=== PATIENT | male | born 1955 | race Hispanic/Latino ===

== ENCOUNTER 2016-11-23 21:19 | Inpatient (IN) | payer MEDICAID ==
--- NOTE | 2016-11-23 21:21 | ED PDOC ---
Psych Transfer Clearance - Clearance Statement Clearance Statement: Reviewed vital signs, lab results and transfer papers. Patient clinically stable for psychiatric admission.
[2016-11-23] MEDS ORDERED: Alum-Mag Hydrox-Simethicone Susp (30 mL) PO PRN (21:59)
[2016-11-23] MEDS ORDERED: DiphenhydrAMINE 50 mg/ml Inj IM PRN (21:59)
[2016-11-23] MEDS ORDERED: Bismuth Subsalicylate 262 mg/15 ml Sus (240 ml) PO PRN (22:04)
[2016-11-24 06:18] LABS: HEMOGLOBIN 15.2 g/dL (12.0-18.0); MEAN CELL VOLUME 91.4 fl (80.0-94.0); MEAN CORPUSCULAR HEMOGLOBIN 30.4 pg (27.0-31.0); MEAN CORPUSCULAR HGB CONC 33.3 g/dL (33.0-37.0); RBC 4.99 Mil/uL (4.40-5.90); WHITE BLOOD COUNT 8.8 K/uL (4.8-10.8)
[2016-11-24 06:34] LABS: IRON 90 ug/dL (49-181)
[2016-11-24 06:48] LABS: T4 7.45 ug/dl (5.5-11.0)
[2016-11-24 07:43] LABS: BLOOD UREA NITROGEN 21 mg/dl (9-20); CALCIUM 8.8 mg/dL (8.4-10.2); GFR AFRICAN-AMERICAN > 60; GFR NON-AFRICAN AMERICAN > 60; HDL CHOLESTEROL 27 MG/DL (30-70)
[2016-11-24 07:54] LABS: LDL CHOLESTEROL 114 mg/dL (0-129)
[2016-11-24 07:57] LABS: % IRON SATURATION 32 % (20-55); TOTAL IRON BINDING CAPACITY 272 ug/dL (250-450)
[2016-11-24] MEDS: Insulin Lispro (humaLOG) 100 Units/ml Inj SC SCH ×4 (08:27→21:24)
--- NOTE | 2016-11-24 10:02 | PCM.PSYCH ---
Initial Psychiatric Evaluation - Initial Psychiatric Evaluation Type of Admission: Voluntary Legal Status: Capacity Chief Complaint (in patient's own words): "I'm worried about the welfare of my family." Patient's Reaction to Hospitalization: 61 yo male w/ h/o Schizoaffective Disorder, was referred to [facility] by his family for worsening paranoia, panic attacks and anxiety. Patient reports that he is preoccupied with the wellbeing of his family. He denies concerns that people want to harm him or his family but does acknowledge that he can understand that his family thinks he is paranoid. NO AH/VH. He denies currently feeling depressed. He is worried about going back to compulsive spending. NO SI/HI, but on initial evaluation the patient reported having "black thoughts" of suicide. PPHX: Current outpatient tx w/ Dr. Ronny Nguyen. One prior psychiatric admission as per records. PMHx: HTN, DMII ALL: NKDA SHx: Completed 12th grade. Unemployed. Was in the [employer]. Denies drugs/ etoh/cig Current Medications: Active Medications Generic Name Dose Route Start Last Admin Trade Name Freq PRN Reason Stop Dose Admin Acetaminophen 650 mg 11/23/16 21:59 Tylenol 325mg Tab PO Q4 PRN Pain, moderate (4-7) Al Hydrox/Mg Hydrox/Simethicone 30 ml 11/23/16 21:59 Maalox Plus 30 Ml PO Q4 PRN Dyspepsia Bismuth Subsalicylate 524 mg 11/23/16 22:04 Pepto-Bismol PO Q4 PRN Diarrhea Diphenhydramine HCl 50 mg 11/23/16 21:59 Benadryl IM Q6 PRN Extrapyramidal S/S Unable PO Diphenhydramine HCl 50 mg 11/23/16 21:59 Benadryl PO Q6 PRN Extrapyramidal Symptoms Diphenhydramine HCl 50 mg 11/23/16 22:04 11/23/16 22:37 Benadryl PO 50 mg HS PRN Administration Sleep Haloperidol 5 mg 11/23/16 21:59 Haldol PO Q4 PRN Agitation Haloperidol Lactate 5 mg 11/23/16 21:59 Haldol IM Q4 PRN Agitation, Unable to Take PO Insulin Human Lispro 0 units 11/24/16 07:30 11/24/16 08:27 Humalog SC Not Given ACHS LAY Protocol Lorazepam 2 mg 11/23/16 21:59 Ativan IM Q4 PRN Anxiety/Agitation,Unable PO Lorazepam 2 mg 11/23/16 21:59 Ativan PO Q4 PRN Anxiety/Agitation Magnesium Hydroxide 30 ml 11/23/16 21:59 Milk Of Magnesia PO HS PRN Constipation Past Psychiatric History - Past Psychiatric History Previous Treatment History: Inpatient Pertinent Medical Hx (Current Medical&Sleep Prob, Allergies): Allergies Allergy/AdvReac Type Severity Reaction Status Date / Time No Known Allergies Allergy Verified 11/23/16 21:20 ARIPiprazole [Abilify] 5 mg PO BID 11/24/16 Lisinopril/Hydrochlorothiazide [Lisinopril-Hctz 20-12.5 mg Tab] 1 each PO BID Paroxetine HCl [Paxil] 40 mg PO DAILY 11/24/16 Verapamil HCl [Verapamil HCl] 360 mg PO DAILY 11/24/16 glyBURIDE [Glyburide] 5 mg PO BID 11/24/16 metFORMIN [glucOPHAGE] 500 mg PO BRKDIN 11/24/16 traZODone [trazODONE HYDROCHLORIDE] 50 mg PO HS 11/24/16 Review of Systems - Psychiatric Psychiatric: Anxiety, Behavioral Changes, Panic Attacks, Paranoia, Suicidal Ideation Mental Status Examination - Personal Presentation Personal Presentation: Looks stated age - Affect Affect: Broad - Motor Activity Motor Activity: Calm - Reliability in Providing Information Reliability in Providing Information: Fair - Speech Speech: Coherent - Mood Mood: Anxious - Formal Thought Process Formal Thought Process: Paranoia, Loosening of associations - Obsessions/Compulsions Obsessions: No Compulsions: No - Cognitive Functions Orientation: Person, Place, Situation, Time Sensorium: Alert Attention/Concentration: Attentive Estimate of Intelligence: Average Judgement: Intact, as evidence by: Insight regarding need for hospitalization Memory: Recent intact, as evidence by: Ability to recall events of the day, Remote intact, as evidenced by: Abilit to recall sig. life events, Remote intact , as evidenced by: Ability to recall historical events - Risk Risk: Diminished functioning - Strength & Assets Inventory Strength & Assets Inventory: Family support, Cooperative DSM 5 DX - DSM 5 DSM 5 Diagnosis: Schizoaffective Disorder - Recommended/Plan of Treatment Treatment Recommendations and Plan of Treatment: -Admit to geropsychiatry -Increase Abilify to 15 mg PO Daily -Continue Paxil 40 mg PO Daily -Continue Trazodone 50 mg PO HS -Obtain collateral history from primary psychiatris and family -Disposition planning -Routine hospitalist consult Projected ELOS: 5 days Discharge Plan and Discharge Criteria: Discharge when psychiatrically stable - Smoking Cessation Smoking Cessation Initiated: No Reason for not providing: Not indicated
[2016-11-24 15:41] LABS: FOLATE > 20.0 ng/mL
--- NOTE | 2016-11-24 17:23 | CP.PCM.HP ---
History of Present Illness - History of Present Illness History of Present Illness: 61 YO M w/ Schizoaffective disorder was transferred from [facility]. Pt states that he has had increased anxiety since his mother had a heart attack, he feels like he has a lot of responsibilities. He denies any suicidal or homicidal ideation currently. Denies any visual or auditory hallucination. Denies any chest pain, SOB, N/V/D/C PMH: HTN, DM 2 PSH: none F/H: Father: CHF, Stroke S/H: Denies alcohol, smoking , illicit drug use Allergy: NKDA Present on Admission - Present on Admission Any Indicators Present on Admission: No Review of Systems - Review of Systems All systems: reviewed and no additional remarkable complaints except Past Patient History - CARDIAC Hx Hypertension: Yes - HEENT Hx HEENT Problems: No - RENAL Hx Chronic Kidney Disease: No - ENDOCRINE/METABOLIC Hx Diabetes Mellitus Type 2: Yes - HEMATOLOGICAL/ONCOLOGICAL Hx Blood Disorders: No - INTEGUMENTARY Hx Dermatological Problems: No - MUSCULOSKELETAL/RHEUMATOLOGICAL Hx Musculoskeletal Disorders: No Hx Falls: No - GASTROINTESTINAL Hx Gastrointestinal Disorders: No - GENITOURINARY/GYNECOLOGICAL Hx Genitourinary Disorders: No - PSYCHIATRIC Hx Depression: Yes Hx Schizophrenia: Yes Hx Substance Use: No - SURGICAL HISTORY Hx Surgeries: No - ANESTHESIA Hx Anesthesia: No Hx Anesthesia Reactions: No Hx Malignant Hyperthermia: No Has any member of the family had a problem w/ anesthesia?: No Meds Allergies/Adverse Reactions: Allergies Allergy/AdvReac Type Severity Reaction Status Date / Time No Known Allergies Allergy Verified 11/23/16 21:20 Physical Exam - Constitutional Appears: No Acute Distress - Head Exam Head Exam: NORMAL INSPECTION, NORMOCEPHALIC - Eye Exam Eye Exam: Normal appearance - Respiratory Exam Respiratory Exam: Clear to Auscultation Bilateral, NORMAL BREATHING PATTERN. absent: Rhonchi, Wheezes - Cardiovascular Exam Cardiovascular Exam: REGULAR RHYTHM, +S1, +S2 - GI/Abdominal Exam GI & Abdominal Exam: Normal Bowel Sounds, Soft. absent: Tenderness - Neurological Exam Neurological exam: Alert, CN II-XII Intact, Oriented x3 - Psychiatric Exam Psychiatric exam: Normal Affect, Normal Mood - Skin Skin Exam: Normal Color, Warm Results - Vital Signs Recent Vital Signs: Last Vital Signs Temp 97.3 F L 11/24/16 15:58 Pulse 78 11/24/16 17:08 Resp 18 11/24/16 15:58 BP 138/76 11/24/16 17:08 Pulse Ox 100 11/23/16 21:20 - Labs Result Diagrams: 11/24/16 06:10 11/24/16 06:10 Labs: Laboratory Results - last 24 hr 11/24/16 11/24/16 11/24/16 05:53 06:10 06:10 WBC RBC Hgb Hct MCV MCH MCHC RDW Plt Count Sodium 136 Potassium 5.1 H Chloride 99 Carbon Dioxide 29 Anion Gap 13 BUN 21 H Creatinine 1.1 Est GFR ( Amer) > 60 Est GFR (Non-Af Amer) > 60 POC Glucose (mg/dL) 113 H Random Glucose 137 H Hemoglobin A1c 10.6 H Calcium 8.8 Iron TIBC % Saturation Ferritin 119.0 Triglycerides 186 H Cholesterol 163 LDL Cholesterol Direct 114 HDL Cholesterol 27 L Vitamin B12 371 Folate > 20.0 Thyroxine (T4) 7.45 TSH 3rd Generation 0.48 11/24/16 11/24/16 11/24/16 06:10 06:10 11:20 WBC 8.8 RBC 4.99 Hgb 15.2 Hct 45.7 MCV 91.4 MCH 30.4 MCHC 33.3 RDW 13.0 Plt Count 257 Sodium Potassium Chloride Carbon Dioxide Anion Gap BUN Creatinine Est GFR ( Amer) Est GFR (Non-Af Amer) POC Glucose (mg/dL) 310 H Random Glucose Hemoglobin A1c Calcium Iron 90 TIBC 272 % Saturation 32 Ferritin Triglycerides Cholesterol LDL Cholesterol Direct HDL Cholesterol Vitamin B12 Folate Thyroxine (T4) TSH 3rd Generation 11/24/16 11/24/16 11/24/16 12:26 15:47 16:56 WBC RBC Hgb Hct MCV MCH MCHC RDW Plt Count Sodium Potassium Chloride Carbon Dioxide Anion Gap BUN Creatinine Est GFR ( Amer) Est GFR (Non-Af Amer) POC Glucose (mg/dL) 277 H 259 H 207 H Random Glucose Hemoglobin A1c Calcium Iron TIBC % Saturation Ferritin Triglycerides Cholesterol LDL Cholesterol Direct HDL Cholesterol Vitamin B12 Folate Thyroxine (T4) TSH 3rd Generation Assessment & Plan - Assessment and Plan (Free Text) Assessment: 1) Schizoaffective disorder - Rx as per psych 2) HTN - Lisinopril 20 mg BId - HTZ 12.5mg - Verapamil 360mg 3) DM 2 - HBA1C: 10.6 - Glyburide - Insulin Lispro - Metformin 500 mg BID - Accucheck - heart healthy diet 4) Prophylaxis - Encourage ambulation 10 mg every hour daily during daytime
[2016-11-25] MEDS: Verapamil 180 mg ER Tab PO SCH (08:54)
[2016-11-25] MEDS: Insulin Lispro (humaLOG) 100 Units/ml Inj SC SCH ×4 (08:57→21:13)
--- NOTE | 2016-11-25 13:18 | PCM.PYCHPN ---
Psychiatric Progress Note - Psychiatric Progress Note Patient seen today, length of contact: Patient evaluated, case discussed with team, chart reviewed Patient Chief Complaint: "I'm worried about the welfare of my family." Problems Identified/Issues Discussed: Patient continues to be preoccupied with the wellbeing of his family. He is worried that his mother is dying (mother denies) and that he will never see her again. He is preoccupied that she doesn't have food or medications at home ( not true) and that he is needed to take care of his disabled brother. He reports feeling depressed in the context of these preoccupations. We discussed continued titration of Abilify. No current adverse effects noted. Medication Change: Yes (Increase Abilify to 20 mg PO Daily, starting tomorrow) Medical Record Reviewed: Yes Consults ordered or reviewed: Medicine consult re: management of DM and HTN Mental Status Examination - Cognitive Function Orientation: Person, Place, Situation, Time Memory: Intact Attention: WNL Concentration: WNL Association: WNL Fund of Knowledge: WN Decription of patient's judgement and insights: Poor insight/ fair judgment - Mood Mood: Depressed, Anxious - Affect Affect: Constricted, Depressed - Speech Speech: Appropriate - Formal Thought Process Formal Thought Process: Paranoia, Loosening of associations, Other (Preoccupied with his family's wellbeing and health) Psychotic Thoughts and Behaviors: Denies AH/VH - Suicidal Ideation Suicidal Ideation: No - Homicidal Ideation Homicidal Ideation: No Goal/Treatment Plan - Goal/Treatment Plan Need for Continued Stay: Remain at risks for inpatient hospitalization, Discharge may exacerbated symptoms, Severe functional impairment Progress Toward Problem(s) and Goals/Treatment Plan: Schizoaffective Disorder, acutely decompensated, paranoid and anxious. -Increase Abilify to 20 mg PO Daily starting tomorrow -Continue Paxil 40 mg PO Daily -Continue Trazodone 50 mg PO HS -Obtain collateral history from primary psychiatrist (pending return call) and family -Disposition planning -Medicine consult appreciated
[2016-11-26] MEDS: Insulin Lispro (humaLOG) 100 Units/ml Inj SC SCH ×4 (08:40→21:07)
[2016-11-26] MEDS: Verapamil 180 mg ER Tab PO SCH (08:41)
--- NOTE | 2016-11-26 11:14 | PCM.PYCHPN ---
Psychiatric Progress Note - Psychiatric Progress Note Patient seen today, length of contact: Patient evaluated, case discussed with team, chart reviewed Patient Chief Complaint: "I'm worried about the welfare of my family." Problems Identified/Issues Discussed: Patient continues to be preoccupied with the wellbeing of his family. He is worried that something bad will happen to his mother and his special needs brother, despite no evidence to indicate that they are in immediate danger. He reports feeling anxious and depressed due to these preoccupations. No current adverse effects noted. Medication Change: Yes (Increase Abilify to 20 mg PO Daily) Medical Record Reviewed: Yes Mental Status Examination - Cognitive Function Orientation: Person, Place, Situation, Time Memory: Intact Attention: WNL Concentration: WNL Association: WNL Fund of Knowledge: WN Decription of patient's judgement and insights: Poor insight/ fair judgment - Mood Mood: Depressed, Anxious - Affect Affect: Constricted, Depressed - Speech Speech: Appropriate - Formal Thought Process Formal Thought Process: Loosening of associations, Other (Preoccupied with his family's wellbeing and health) Psychotic Thoughts and Behaviors: Denies AH/VH - Suicidal Ideation Suicidal Ideation: No - Homicidal Ideation Homicidal Ideation: No Goal/Treatment Plan - Goal/Treatment Plan Need for Continued Stay: Remain at risks for inpatient hospitalization, Discharge may exacerbated symptoms, Severe functional impairment Progress Toward Problem(s) and Goals/Treatment Plan: Schizoaffective Disorder, acutely decompensated, paranoid and anxious. -Increase Abilify to 20 mg PO Daily -Continue Paxil 40 mg PO Daily -Continue Trazodone 50 mg PO HS -Obtain collateral history from primary psychiatrist (pending return call) and family -Disposition planning -Medicine consult appreciated Estimated Date of D/C: 12/01/16
[2016-11-27] MEDS: Insulin Lispro (humaLOG) 100 Units/ml Inj SC SCH ×4 (08:10→21:04)
[2016-11-27] MEDS: Verapamil 180 mg ER Tab PO SCH (08:16)
--- NOTE | 2016-11-27 09:39 | PCM.PYCHPN ---
Psychiatric Progress Note - Psychiatric Progress Note Patient seen today, length of contact: Patient evaluated, case discussed with team, chart reviewed Patient Chief Complaint: "I'm worried about the welfare of my family." Problems Identified/Issues Discussed: Patient continues to be preoccupied with the wellbeing of his family. He is worried that something bad will happen to his mother and his special needs brother, despite no evidence to indicate that they are in immediate danger. He is requesting to call his denominational to ask someone to check on his family. He seeks reassurance from various staff members. He reports feeling anxious and depressed due to these preoccupations. No current adverse effects noted. Medication Change: Yes (Start Klonopin 0.5 mg Q12 hr) Medical Record Reviewed: Yes Mental Status Examination - Cognitive Function Orientation: Person, Place, Situation, Time Memory: Intact Attention: WNL Concentration: WNL Association: WNL Fund of Knowledge: [facility] Decription of patient's judgement and insights: Poor insight/ fair judgment - Mood Mood: Depressed, Anxious - Affect Affect: Constricted, Depressed - Speech Speech: Appropriate - Formal Thought Process Formal Thought Process: Loosening of associations, Other (Preoccupied with his family's wellbeing and health) Psychotic Thoughts and Behaviors: Denies AH/VH - Suicidal Ideation Suicidal Ideation: No - Homicidal Ideation Homicidal Ideation: No Goal/Treatment Plan - Goal/Treatment Plan Need for Continued Stay: Remain at risks for inpatient hospitalization, Discharge may exacerbated symptoms, Severe functional impairment Progress Toward Problem(s) and Goals/Treatment Plan: Schizoaffective Disorder, acutely decompensated, paranoid and anxious. -Continue Abilify 20 mg PO Daily -Start Klonopin 0.5 mg PO Q12 hr -Continue Paxil 40 mg PO Daily -Continue Trazodone 50 mg PO HS -Obtain collateral history from primary psychiatrist (pending return call) and family -Disposition planning -Medicine consult appreciated Estimated Date of D/C: 12/02/16
[2016-11-28] MEDS: Verapamil 180 mg ER Tab PO SCH (08:33)
[2016-11-28] MEDS: Insulin Lispro (humaLOG) 100 Units/ml Inj SC SCH ×4 (08:35→21:11)
[2016-11-28 16:25] VITALS: BMI 27.7
[2016-11-29] MEDS: Verapamil 180 mg ER Tab PO SCH (09:08)
[2016-11-29] MEDS: Insulin Lispro (humaLOG) 100 Units/ml Inj SC SCH ×2 (09:09→11:38)
[2016-11-29] MEDS: Magnesium Hydroxide Susp 30 ml UD PO PRN (09:22)
--- NOTE | 2016-11-29 11:25 | PCM.PYCHPN ---
Psychiatric Progress Note - Psychiatric Progress Note Patient seen today, length of contact: Patient evaluated, case discussed with team, chart reviewed Patient Chief Complaint: changes in mood, hyper, spending too much money, family brought him to [facility]- [facility] [address] [facility] Problems Identified/Issues Discussed: alteration in mood impulsive spending impulsive activity paranoia Medical Problems: per chart Diagnostic Results: per psychiatry per medicine per nursing per director of social services per recreational therapy Medication Change: Yes (increase abilify to 30mg po day 2nd paranoia/ impulsivity ) Medical Record Reviewed: Yes Mental Status Examination - Cognitive Function Orientation: Person, Place, Situation, Time Memory: Intact Attention: WNL Concentration: WNL Association: WN Fund of Knowledge: [facility] Decription of patient's judgement and insights: impaired - Mood Mood: Depressed, Anxious - Affect Affect: Constricted, Depressed - Speech Speech: Appropriate - Formal Thought Process Formal Thought Process: Loosening of associations, Other (Preoccupied with his family's wellbeing and health) - Suicidal Ideation Suicidal Ideation: No - Homicidal Ideation Homicidal Ideation: No Goal/Treatment Plan - Goal/Treatment Plan Need for Continued Stay: Remain at risks for inpatient hospitalization, Discharge may exacerbated symptoms, Severe functional impairment Progress Toward Problem(s) and Goals/Treatment Plan: inpt admission adjust med per clinical status-will increase abilify to 30 mg day-paranoia, impulsivity reportedly at desk repeatedly asking for wallet, requires frequent redirection vital vigns and clinical observation per status discharge planning in progress Estimated Date of D/C: 12/03/16 - Smoking Cessation Smoking Cessation Initiated: No Reason for not providing: deferred
[2016-11-30] MEDS: Insulin Lispro (humaLOG) 100 Units/ml Inj SC SCH ×4 (08:47→21:12)
[2016-11-30] MEDS: Magnesium Hydroxide Susp 30 ml UD PO PRN (08:53)
--- NOTE | 2016-11-30 14:54 | PCM.PYCHPN ---
Psychiatric Progress Note - Psychiatric Progress Note Patient seen today, length of contact: Patient evaluated, case discussed with team, chart reviewed Patient Chief Complaint: changes in mood, hyper, spending too much money, family brought him to [facility]- was brought to [address] [facility] pt reports no bm in several days in spite of drinking fluids and trying to walk around unit Problems Identified/Issues Discussed: alteration in mood impulsive spending impulsive activity paranoia alteration in elimination Medical Problems: per chart Diagnostic Results: per psychiatry per medicine per nursing per social welfare research worker per recreational therapy DSM 5 Symptoms Update: alteration in mood and thought Medication Change: No Medical Record Reviewed: Yes Mental Status Examination - Cognitive Function Orientation: Person, Place, Situation, Time Memory: Intact Attention: WNL Concentration: WNL Association: WNL Fund of Knowledge: [facility] Decription of patient's judgement and insights: impaired - Mood Mood: Depressed, Anxious - Affect Affect: Constricted, Depressed - Speech Speech: Appropriate - Formal Thought Process Formal Thought Process: Loosening of associations, Other (Preoccupied with his family's wellbeing and health) - Suicidal Ideation Suicidal Ideation: No - Homicidal Ideation Homicidal Ideation: No Goal/Treatment Plan - Goal/Treatment Plan Need for Continued Stay: Remain at risks for inpatient hospitalization, Discharge may exacerbated symptoms, Severe functional impairment Progress Toward Problem(s) and Goals/Treatment Plan: inpt admission adjust med per clinical status-continue abilify to 30 mg day-paranoia, impulsivity reportedly at desk repeatedly asking for wallet, requires frequent redirection -denies eps start colace 100mg po tid for constipation stop if loose stool or diarrhea vital vigns and clinical observation per status discharge planning in progress Estimated Date of D/C: 12/03/16 - Smoking Cessation Smoking Cessation Initiated: No Reason for not providing: deferred
[2016-12-01] MEDS: Insulin Lispro (humaLOG) 100 Units/ml Inj SC SCH ×4 (08:21→22:05)
[2016-12-01] MEDS ORDERED: Magnesium Hydroxide Susp 30 ml UD PO PRN (16:20)
--- NOTE | 2016-12-01 16:30 | PCM.PYCHPN ---
Psychiatric Progress Note - Psychiatric Progress Note Patient seen today, length of contact: Patient evaluated, case discussed with team, chart reviewed Patient Chief Complaint: reports has not had bm after receiving colace, reports that has been drinker water, walking about unit, reports chronic depression with insomnia-has been receiving trazodone. medication adherence without notable missed doses nor notable side effects. reports feeling less hyper is feeling depressed appetite is fair changes in mood, hyper, spending too much money, family brought him to [facility]- was brought to [address] to bed availablity pt reports no bm in several days in spite of drinking fluids and trying to walk around unit Problems Identified/Issues Discussed: alteration in mood impulsive spending impulsive activity paranoia alteration in elimination Medical Problems: per chart Diagnostic Results: per psychiatry per medicine per nursing per social organization professor per recreational therapy DSM 5 Symptoms Update: alteration in mood alteration in cognition Medication Change: Yes (mom ampm prn, [id number],d/ ctrazodone [id number]) Medical Record Reviewed: Yes Mental Status Examination - Cognitive Function Orientation: Person, Place, Situation, Time Memory: Intact Attention: WNL Concentration: WNL Association: WN Fund of Knowledge: [facility] Decription of patient's judgement and insights: impaired - Mood Mood: Depressed, Anxious - Affect Affect: Constricted, Depressed - Speech Speech: Appropriate - Formal Thought Process Formal Thought Process: Loosening of associations, Other (Preoccupied with his family's wellbeing and health) Psychotic Thoughts and Behaviors: less looseness of associations, complaining more of depression - Suicidal Ideation Suicidal Ideation: No - Homicidal Ideation Homicidal Ideation: No Goal/Treatment Plan - Goal/Treatment Plan Need for Continued Stay: Remain at risks for inpatient hospitalization, Discharge may exacerbated symptoms, Severe functional impairment Progress Toward Problem(s) and Goals/Treatment Plan: inpt admission adjust med per clinical status-continue abilify to 30 mg day-paranoia, impulsivity reportedly at desk repeatedly asking for wallet, requires frequent redirection -denies eps start colace 300mg po hs prn constipation stop if loose stool or diarrhea mom am and pm prn constipation-stop if loose stool or diarrhvital vigns and clinical observation per status stop trazodone constipation?, remeron 7.5mg po hs start mood, sleep, appetite- above discussed with pt discharge planning in progress Estimated Date of D/C: 12/03/16 - Smoking Cessation Smoking Cessation Initiated: No Reason for not providing: deferred
[2016-12-02] MEDS: Insulin Lispro (humaLOG) 100 Units/ml Inj SC SCH ×5 (08:00→21:19)
[2016-12-02] MEDS ORDERED: Magnesium Citrate Oral SOL (300 ml) PO ONE (11:19)
--- NOTE | 2016-12-02 14:07 | PCM.PYCHPN ---
Psychiatric Progress Note - Psychiatric Progress Note Patient seen today, length of contact: Patient evaluated, case discussed with team, chart reviewed Patient Chief Complaint: reports is doing a little better in terms of mood, remains without bm reports has not had bm after receiving colace, reports that has been drinker water, walking about unit, reports chronic depression with insomnia-has been receiving trazodone. medication adherence without notable missed doses nor notable side effects. reports feeling less hyper is feeling depressed appetite is fair changes in mood, hyper, spending too much money, family brought him to [facility]- [facility] [address] [facility] reports no bm in several days in spite of drinking fluids and trying to walk around unit Problems Identified/Issues Discussed: alteration in mood impulsive spending impulsive activity paranoia alteration in elimination Medical Problems: per chart Diagnostic Results: per psychiatry per medicine per nursing per social work manager per recreational therapy DSM 5 Symptoms Update: alteration in mood alteration cognition alteration in elimination Medication Change: No Medical Record Reviewed: Yes Mental Status Examination - Cognitive Function Orientation: Person, Place, Situation, Time Memory: Intact Attention: WNL Concentration: WNL Association: WNL Fund of Knowledge: WN Decription of patient's judgement and insights: impaired - Mood Mood: Depressed, Anxious - Affect Affect: Constricted, Depressed - Speech Speech: Appropriate - Formal Thought Process Formal Thought Process: Loosening of associations, Other (Preoccupied with his family's wellbeing and health) Psychotic Thoughts and Behaviors: less looseness of associations, complaining more of depression - Suicidal Ideation Suicidal Ideation: No - Homicidal Ideation Homicidal Ideation: No Goal/Treatment Plan - Goal/Treatment Plan Need for Continued Stay: Remain at risks for inpatient hospitalization, Discharge may exacerbated symptoms, Severe functional impairment Progress Toward Problem(s) and Goals/Treatment Plan: inpt admission adjust med per clinical status-continue abilify to 30 mg day-paranoia, impulsivity reportedly at desk repeatedly asking for wallet, requires frequent redirection -denies eps citrate of magnesium one dose today contine 300mg po hs prn constipation stop if loose stool or diarrhea mom am and pm prn constipation-stop if loose stool or diarrhvital vigns and clinical observation per status stop trazodone constipation?, remeron 7.5mg po hs start mood, sleep, appetite- above discussed with pt discharge planning in progress Estimated Date of D/C: 12/03/16 - Smoking Cessation Smoking Cessation Initiated: No Reason for not providing: defers
[2016-12-03] MEDS: Insulin Lispro (humaLOG) 100 Units/ml Inj SC SCH ×4 (09:15→21:23)
--- NOTE | 2016-12-03 17:18 | PCM.PYCHPN ---
Psychiatric Progress Note - Psychiatric Progress Note Patient seen today, length of contact: Patient evaluated, case discussed with team, chart reviewed Patient Chief Complaint: reports had bowel movement, stomach feels a little bloated, has been seen in unit, adherent with rx, has been able to communicate with family via phone, also had requested and met with book retailer Problems Identified/Issues Discussed: alteration in mood impulsive spending impulsive activity paranoia alteration in elimination Medical Problems: per chart Diagnostic Results: per psychiatry per medicine per nursing per social media marketer per recreational therapy DSM 5 Symptoms Update: alteration in mood, cognition, self care resolving alteration in elimination Medication Change: No Medical Record Reviewed: Yes Mental Status Examination - Cognitive Function Orientation: Person, Place, Situation, Time Memory: Intact Attention: WNL Concentration: WNL Association: WNL Fund of Knowledge: WN Decription of patient's judgement and insights: impaired - Mood Mood: Depressed, Anxious - Affect Affect: Constricted, Depressed - Speech Speech: Appropriate - Formal Thought Process Formal Thought Process: Loosening of associations, Other (Preoccupied with his family's wellbeing and health) Psychotic Thoughts and Behaviors: less looseness of associations, complaining more of depression - Suicidal Ideation Suicidal Ideation: No - Homicidal Ideation Homicidal Ideation: No Goal/Treatment Plan - Goal/Treatment Plan Need for Continued Stay: Remain at risks for inpatient hospitalization, Discharge may exacerbated symptoms, Severe functional impairment Progress Toward Problem(s) and Goals/Treatment Plan: inpt admission milieu therapy vital signs and clinical observations per protocol/clinical status continue to assess for elimination status discharge planning in progress Estimated Date of D/C: 12/03/16 - Smoking Cessation Smoking Cessation Initiated: No Reason for not providing: deferred
[2016-12-04] MEDS: Insulin Lispro (humaLOG) 100 Units/ml Inj SC SCH ×4 (08:29→21:16)
--- NOTE | 2016-12-04 14:51 | PCM.PYCHPN ---
Psychiatric Progress Note - Psychiatric Progress Note Patient seen today, length of contact: Patient evaluated, case discussed with team, chart reviewed Patient Chief Complaint: reports gi status has improved, mood is less depressed, sleeping better, denies side effects rx, seen about unit, rx adherent, has been able to speak with family via phone reports had bowel movement, stomach feels a little bloated, has been seen in unit, adherent with rx, has been able to communicate with family via phone, also had requested and met with collarette separator Problems Identified/Issues Discussed: alteration in mood impulsive spending impulsive activity paranoia alteration in elimination Medical Problems: per chart Diagnostic Results: per psychiatry per medicine per nursing per social worker masters per recreational therapy DSM 5 Symptoms Update: alteration in thought process, alteration in mood, alteration in self care, alteration in elimination Medication Change: No Medical Record Reviewed: Yes Mental Status Examination - Cognitive Function Orientation: Person, Place, Situation, Time Memory: Intact Attention: WNL Concentration: WNL Association: WNL Fund of Knowledge: WNL Decription of patient's judgement and insights: impaired-improving - Mood Mood: Depressed, Anxious - Affect Affect: Constricted, Depressed Additional comments: less as compared to previous visits - Speech Speech: Appropriate - Formal Thought Process Formal Thought Process: Loosening of associations, Other (Preoccupied with his family's wellbeing and health) Psychotic Thoughts and Behaviors: less looseness of associations, complaining more of depression - Suicidal Ideation Suicidal Ideation: No - Homicidal Ideation Homicidal Ideation: No Goal/Treatment Plan - Goal/Treatment Plan Need for Continued Stay: Remain at risks for inpatient hospitalization, Discharge may exacerbated symptoms, Severe functional impairment Progress Toward Problem(s) and Goals/Treatment Plan: inpt admission milieu therapy vital signs and clinical observations per protocol/clinical status continue to assess for elimination status discharge planning in progress pt will be re evaluated by team in [id number] for possible discharge Estimated Date of D/C: 12/03/16 - Smoking Cessation Smoking Cessation Initiated: No Reason for not providing: deferred
--- NOTE | 2016-12-04 14:59 | PCM.PYCHDC ---
Mental Status Examination - Mental Status Examination Orientation: Person, Place, Situation, Time Memory: Intact Mood: Other (less depressed, less anxious, less constricted) Attention: WNL Concentration: WNL Association: WNL Fund of Knowledge: WNL Formal Thought Process: No Impairment Description of patient's judgement and insight: impaired-improving Psychotic Thoughts and Behaviors: less looseness of associations, complaining more of depression Suicidal Ideation: No Current Homicidal Ideation?: No Discharge Summary - Discharge Note Reason for Hospitalization: 61 yo male w/ h/o Schizoaffective Disorder, was referred to [facility] by his family for worsening paranoia, panic attacks and anxiety. Patient reports that he is preoccupied with the wellbeing of his family. He denies concerns that people want to harm him or his family but does acknowledge that he can understand that his family thinks he is paranoid. NO AH/VH. He denies currently feeling depressed. He is worried about going back to compulsive spending. NO SI/HI, but on initial evaluation the patient reported having "black thoughts" of suicide. PPHX: Current outpatient tx w/ Dr. Ronny Nguyen. One prior psychiatric admission as per records. PMHx: HTN, DMII ALL: NKDA SHx: Completed 12th grade. Unemployed. Was in the [employer]. Denies drugs/ etoh/cig Laboratory Data: Abnormal Lab Results 11/29/16 11/29/16 12/03/16 16:35 19:42 16:37 POC Glucose (mg/dL) 87 99 82 12/03/16 12/04/16 12/04/16 20:15 05:44 11:21 POC Glucose (mg/dL) 84 96 137 H Consultations:: List each consultation separately and include: 1. Reason for request. 2. Findings. 3. Follow-up Consultations: hospitalist Summary of Hospital Course include:: 1. Description of specific treatment plan utilized for patients during their course of treatmen. 2. Summarize the time- course for resolution of acute symptoms and/or regressed behaviors. 3. Describe issues identified and worked on during hospitalization. 4. Describe medication utilized. 5. Describe medical problems identified and treated. 6. Reassessment of suicide risk Summary of Hospital Course: 61 yo male w/ h/o Schizoaffective Disorder, was referred to [facility] by his family for worsening paranoia, panic attacks and anxiety. Patient reports that he is preoccupied with the wellbeing of his family. He denies concerns that people want to harm him or his family but does acknowledge that he can understand that his family thinks he is paranoid. NO AH/VH. He denies currently feeling depressed. He is worried about going back to compulsive spending. NO SI/HI, but on initial evaluation the patient reported having "black thoughts" of suicide. PPHX: Current outpatient tx w/ Dr. Ronny Nguyen. One prior psychiatric admission as per records. PMHx: HTN, DMII ALL: NKDA SHx: Completed 12th grade. Unemployed. Was in the [employer]. Denies drugs/ etoh/cig pt was admitted to [facility] on a voluntary basis, was treated with milieu therapy and adjustment of medications per clinical staus. pt was seen by hospitalist. pt received treatment for constipation with relief of constipation. pt was gradually noted to be participartory in milieu, able to be assisted with telephone calls to family, gradually reported less depression and paranoia, decreased anxiety, decreased panic, believes is more in control of mood, does not think he will be spending as much as before. expresses hope for future and desire to return to family. verbalizes desire to follow up upon discharge on an outpatient basis [facility] - Final Diagnosis (DSM 5) Condition upon Discharge: GUARDED Disposition: HOME/ ROUTINE Follow-up Treatment Plan: pt to be discharged by attending md once stable/staff discharge planning in progress pt will be re evaluated by team in [id number] for possible discharge-allocations clerk in process of cofirming follow up care - Antipsychotic Medications Pt discharged on 2 or more routine antipsychotic medications: No
--- NOTE | 2016-12-04 15:09 | PCM.PYCHPN ---
Psychiatric Progress Note - Psychiatric Progress Note Patient seen today, length of contact: Patient evaluated, case discussed with team, chart reviewed Patient Chief Complaint: reports gi status has improved, mood is less depressed, sleeping better, denies side effects rx, seen about unit, rx adherent, has been able to speak with family via phone reports had bowel movement, stomach feels a little bloated, has been seen in unit, adherent with rx, has been able to communicate with family via phone, also had requested and met with market asset protection manager Problems Identified/Issues Discussed: alteration in mood impulsive spending impulsive activity paranoia alteration in elimination Medical Problems: per chart Diagnostic Results: per psychiatry per medicine per nursing per pediatric social worker per recreational therapy DSM 5 Symptoms Update: alteration in cognition, alteration in mood, alteration in elimination Medication Change: No Medical Record Reviewed: Yes Mental Status Examination - Cognitive Function Orientation: Person, Place, Situation, Time Memory: Intact Attention: WNL Concentration: WNL Association: WNL Fund of Knowledge: WN Decription of patient's judgement and insights: impaired-improving - Mood Mood: Other (less depressed, less anxious, less constricted) - Affect Affect: Constricted, Depressed - Speech Speech: Appropriate - Formal Thought Process Formal Thought Process: No Impairment Psychotic Thoughts and Behaviors: less looseness of associations, complaining more of depression - Suicidal Ideation Suicidal Ideation: No - Homicidal Ideation Homicidal Ideation: No Goal/Treatment Plan - Goal/Treatment Plan Need for Continued Stay: Remain at risks for inpatient hospitalization, Discharge may exacerbated symptoms, Severe functional impairment Progress Toward Problem(s) and Goals/Treatment Plan: pt to be discharged by attending md once stable/staff discharge planning in progress pt will be re evaluated by team in [id number] for possible discharge-machine striper in process of cofirming follow up care Estimated Date of D/C: 12/03/16 - Smoking Cessation Smoking Cessation Initiated: No Reason for not providing: deferred
[2016-12-05 05:57] VITALS: BP 105/68; PULSE 60; RESP 19; TEMP 97.4; O2SAT 100
[2016-12-05] MEDS: Insulin Lispro (humaLOG) 100 Units/ml Inj SC SCH ×2 (08:37→12:12)
== END 2016-12-05 14:30 | disposition home or self-care (01) | DRG 430 ==
LOC: H.ER 21:19 → H.STEP 21:20
PROVIDERS: ADMIT Psychiatry & Neurology Psychiatry; ATTEND Psychiatry & Neurology Psychiatry
PROC: GZHZZZZ Group Psychotherapy (ICD-10-PCS; principal; 2016-11-23)
PROC: GZ58ZZZ Individual Psychotherapy, Cognitive-Behavioral (ICD-10-PCS; 2016-11-23)
DX: F25.9 Schizoaffective disorder, unspecified (principal); E11.9 Type 2 diabetes mellitus without complications; I10 Essential (primary) hypertension; F32.9 Major depressive disorder, single episode, unspecified; F41.0 Panic disorder [episodic paroxysmal anxiety]; F22 Delusional disorders; G47.00 Insomnia, unspecified; K59.00 Constipation, unspecified; Z79.84 Long term (current) use of oral hypoglycemic drugs